=== PATIENT | female | born 1955 | race Caucasian/White ===

== ENCOUNTER 2017-07-07 16:25 | Emergency (ER) | payer OTHER, MEDICAID ==
[~2017-07-07] VITALS: Ht 160 cm; Wt 111.1 kg
[2017-07-07 18:04] VITALS: BP 140/78
[2017-07-07 18:07] LABS: BASOPHIL % 0.6 % (0-2); PLATELET COUNT 217 x10^3mcL (130-400); RED CELL DISTRIBUTION WIDTH 14.2 % (11.5-14.5)
[2017-07-07 18:12] LABS: CARBON DIOXIDE 32.6 mmol/L (21-32); CHLORIDE SERUM 105 mmol/L (98-107); CREATININE SERUM 0.7 mg/dL (0.6-1.0); GFR1 > 60 mL/min; GLUCOSE SERUM 127 mg/dL (74-106); POTASSIUM SERUM 3.7 mmol/L (3.5-5.1); SODIUM SERUM 144 mmol/L (136-145)
== END 2017-07-07 18:12 | disposition home or self-care (01) ==
LOC: ED 16:25
PROVIDERS: Emergency Medicine
DX: L03.113 Cellulitis of right upper limb (principal); I10 Essential (primary) hypertension; E11.9 Type 2 diabetes mellitus without complications
CPT/HCPCS: 82962; 90715

== ENCOUNTER 2019-05-18 06:26 | Day surgery (SDC) | payer OTHER, MEDICAID ==
[~2019-05-18] VITALS: Ht 160 cm; Wt 113.4 kg
[2019-05-18 07:14] VITALS: BP 134/70
[2019-05-18 12:04] VITALS: BP 137/72
== END 2019-05-18 10:10 | disposition home or self-care (01) ==
LOC: DS 06:26 → OR 07:30 → GI 07:30 → DS 10:10
DX: K59.00 Constipation, unspecified (principal); D12.8 Benign neoplasm of rectum; M17.0 Bilateral primary osteoarthritis of knee; M19.042 Primary osteoarthritis, left hand; M19.041 Primary osteoarthritis, right hand; E11.9 Type 2 diabetes mellitus without complications; E78.5 Hyperlipidemia, unspecified; E66.01 Morbid (severe) obesity due to excess calories; Z91.018 Allergy to other foods; Z79.82 Long term (current) use of aspirin; Z79.899 Other long term (current) drug therapy; Z85.3 Personal history of malignant neoplasm of breast; Z98.890 Other specified postprocedural states; Z92.21 Personal history of antineoplastic chemotherapy; Z92.3 Personal history of irradiation; Z68.30 Body mass index [BMI] 30.0-30.9, adult
CPT/HCPCS: 45378; J1200; J1610; J2250; J2310; J3010; J3490